=== PATIENT | male | born 1955 | race Caucasian/White ===

== ENCOUNTER 2019-12-15 06:31 | Outpatient (CLI) | payer MEDICARE, OTHER ==
[2019-12-15 10:47] LABS: #Basophils 0.1 thou/uL (0.0-0.2); #Eosinphils 0.3 thou/uL (0.0-0.7); #Lymphocytes 2.8 thou/uL (1.20-3.40); #Monocytes 1.1 thou/uL (0.11-0.59); %Basophils 1.1 % (0.0-1.0); %Eosinophils 2.6 % (0.0-10.0); %Lymphocytes 27.4 % (21.0-51.0); %Monocytes 10.9 % (0.0-10.0); Hemoglobin 14.6 g/dL (14.0-18.0); Mean Corpuscular HGB CONC 32.8 g/dL (32.0-36.0); Mean Corpuscular Hemoglobin 31.4 pg (27.0-31.0); Mean Corpuscular Volume 95.7 fL (78.0-98.0); Mean Platelet Volume 11.8 fL (7.4-10.4); Platelet Count 126 thou/uL (130-400); RBC Distribution Width 12.7 % (11.5-14.5); Red Blood Cell (RBC) Count 4.66 mill/uL (4.70-6.10); White Blood Cell (WBC) Count 10.3 thou/uL (4.8-10.8)
[2019-12-15 11:09] LABS: Anion Gap 13 mmol/L (10-20); BUN (Urea Nitrogen) 12 mg/dL (8.4-25.7); Calc. Creatinine Clearance 0 mL/min (70-130); Calcium 9.4 mg/dL (7.8-10.44); Carbon Dioxide 23 mmol/L (23-31); Chloride 105 mmol/L (98-107); Estimated GFR-MDRD 75; Glucose 102 mg/dL (80-115); Potassium 4.3 mmol/L (3.5-5.1); Sodium 137 mmol/L (136-145)
[2019-12-15 18:04] LABS: SARS-CoV-2 MS2 Positive; SARS-CoV-2 N Gene Negative; SARS-CoV-2 S Gene Negative; SARS-CoV-2 orf1ab Negative
--- NOTE | 2019-12-15 20:23 | EKG ---
Test Reason : Blood Pressure : / mmHG Vent. Rate : 085 BPM Atrial Rate : 085 BPM P-R Int : 166 ms QRS Dur : 142 ms QT Int : 410 ms P-R-T Axes : 050 063 -73 degrees QTc Int : 487 ms Normal sinus rhythm Left bundle branch block Abnormal ECG No previous ECGs available Confirmed by TERRY ESTRADA, DR. Adamson ([id number]) on 12/15/2019 8:22:26 PM Referred By: ABI Confirmed By:DR. Snow STEWART MD
== END 2019-12-15 06:32 | disposition home or self-care (01) ==
LOC: LABBT 06:31
PROVIDERS: ATTEND Surgery
DX: Z01.818 Encounter for other preprocedural examination (principal); Z11.59 Encounter for screening for other viral diseases; K42.9 Umbilical hernia without obstruction or gangrene; K43.9 Ventral hernia without obstruction or gangrene
CPT/HCPCS: 80048; 85025; 93005; U0003; 87635; 93010

== ENCOUNTER 2019-12-17 06:05 | Day surgery (SDC) | payer MEDICARE, OTHER ==
[2019-12-15 09:46] VITALS: BMI 25.7
[2019-12-17] MEDS ORDERED: Fentanyl 100 MCG/2 ML VIAL ONE ×2 (06:27→10:10)
[2019-12-17] MEDS ORDERED: Lidocaine 1% w/Epinephrine 1:100K 20 ML VIAL ONE (06:44)
[2019-12-17] MEDS ORDERED: Bupivacaine 0.25% HCL 30 ML VIAL ONE (06:44)
--- NOTE | 2019-12-17 09:30 | OP ---
DATE OF PROCEDURE: 12/17/2019 PREOPERATIVE DIAGNOSES: Incisional hernia and umbilical hernia. POSTOPERATIVE DIAGNOSES: Incisional hernia and umbilical hernia. PROCEDURES PERFORMED: 1. DaVinci laparoscopic incisional hernia repair with mesh, [address] 2. Umbilical hernia with mesh, open, Ventralex ST small. ANESTHESIA: General. ESTIMATED BLOOD LOSS: Minimal. COMPLICATIONS: None. FINDINGS: Hernia at the xiphoid from previous mediastinal tube. DESCRIPTION OF PROCEDURE: The patient was taken to the operating room and laid supine on the operating room table. After general anesthetic was obtained, his abdomen was shaved, prepped, and draped in a sterile fashion. A curved incision was made below the umbilicus and a left subcostal 5 mm Optiview trocars placed under direct vision without injury. An 11 mm balloon trocar placed at the umbilicus. Left and right abdominal 8 mm robotic trocars were placed. All ports were docked to the robot. The posterior peritoneum was taken down in the area of the falciform ligament, revealing this hernia just below the xiphoid. The fascia was fully exposed. The preperitoneal fat was dissected out of the hernia. The fascial defect was closed using a running 0 V-Loc suture. An [address] mesh was marked, cut, and placed into the abdominal cavity. The exposed mesh part was placed up against the posterior fascia. The nonadherent side was left down against abdominal viscera. This mesh was sewn to the posterior fascia using running 2-0 V-Loc. There was no injury to intraabdominal structures. All port sites were infiltrated using local anesthetic. All ports were removed under camera visualization. Pneumoperitoneum was let down. Umbilical stalk was then amputated at the umbilical incision and the edges of the fascial defect at the umbilicus were freshened. Ventralex ST small umbilical mesh was brought in sterile field, placed in the preperitoneal space and pulled up flat against the posterior abdominal wall. The tails were sewn via permanent braided suture to the edges of the fascia. The fascia was closed loosely over the mesh. The wound was irrigated. Local anesthetic was applied. The umbilical stalk was tacked back down using Vicryl. The skin was closed with a running 4-0 Monocryl and Dermabond. The other incisions were closed using 4-0 Monocryl and Dermabond. The patient was sent to Recovery in stable condition. All instrument counts, needle counts, and lap counts were correct. Job ID: [id number]
[2019-12-17] MEDS ORDERED: traMADol HCl 50 MG TAB ONE ×2 (11:14→12:10)
[2019-12-17] MEDS ORDERED: Ondansetron PF 4 MG/2 ML Vial ONE (12:41)
[2019-12-17] MEDS ORDERED: PROPOFOL 200 MG/20 ML VIAL ONE (12:41)
[2019-12-17] MEDS ORDERED: Rocuronium Bromide 10 MG/ML (10ML VIAL) ONE (12:41)
[2019-12-17] MEDS ORDERED: Dexamethasone 20 MG/5 ML VIAL ONE (12:41)
[2019-12-17] MEDS ORDERED: Ketorolac Tromethamine 30 MG/ML VIAL ONE (12:41)
[2019-12-17] MEDS ORDERED: Glycopyrrolate 0.2 MG/ML 5 ML SYRINGE ONE (12:41)
[2019-12-17] MEDS ORDERED: Lidocaine 1% PF 5 ML VIAL ONE (12:41)
[2019-12-17] MEDS ORDERED: PHENYLEPHRINE-NS 100 MCG/ML 10 ML SYRINGE ONE (12:41)
== END 2019-12-17 12:25 | disposition home or self-care (01) ==
LOC: SDC 06:05
PROVIDERS: ATTEND Surgery
PROC: 0WUF4JZ Supplement Abdominal Wall with Synthetic Substitute, Percutaneous Endoscopic Approach (ICD-10-PCS; principal; 2019-12-17)
PROC: 0WUF0JZ Supplement Abdominal Wall with Synthetic Substitute, Open Approach (ICD-10-PCS; 2019-12-17)
DX: K43.2 Incisional hernia without obstruction or gangrene (principal); K42.9 Umbilical hernia without obstruction or gangrene; F41.9 Anxiety disorder, unspecified; J45.909 Unspecified asthma, uncomplicated; E78.5 Hyperlipidemia, unspecified; I10 Essential (primary) hypertension; F17.210 Nicotine dependence, cigarettes, uncomplicated; Z79.82 Long term (current) use of aspirin; Z79.899 Other long term (current) drug therapy; Z88.2 Allergy status to sulfonamides; Z88.6 Allergy status to analgesic agent; Z88.8 Allergy status to other drugs, medicaments and biological substances; Z95.1 Presence of aortocoronary bypass graft
CPT/HCPCS: 49585; 49654; C1781; J0690; J1100; J1885; J2001; J2405; J2704; J3010; S0020

== ENCOUNTER 2020-08-10 09:46 | Outpatient (CLI) | payer MEDICARE, OTHER ==
--- NOTE | 2020-08-10 10:32 | RAD ---
Right RIBS 3 views HISTORY: Injury. FINDINGS: No displaced rib fracture or pneumothorax evident. Old, healed injuries to the right [age] h rib apparent. Postoperative changes mediastinum with aortic calcification. Rightward convex curvature of the lumbar spine. Metallic clips overlie the right axilla. IMPRESSION : No acute abnormalities are demonstrated.
--- NOTE | 2020-08-10 10:40 | RAD ---
EXAM: XR Lumbar Spine 2 Or 3 View PROVIDED CLINICAL HISTORY: Low back pain COMPARISON: None FINDINGS: 5 nonrib-bearing lumbar-type vertebral bodies are demonstrated. There is right convexity rotoscolios is of the lower thoracic and lumbar spine. There is trace anterolisthesis of L3 on L4 and slight retrolisthesis of L2 on L3. Lumbar alignment appears otherwise normal. Vertebral body heights appear preserved. Prominent disc space narrowing and endplate degenerative change at L3-4. Advanced multilevel lower lumbar facet arthritis. Conspicuous vascular calcifications and possible 3 cm abdomi nal aortic aneurysm. IMPRESSION: 1. Lumbar degenerative change and scoliosis as described. 2. Possible 3 cm abdominal aortic aneurysm. Recommend correlation with ultrasound. CODE T
== END 2020-08-10 09:47 | disposition home or self-care (01) ==
LOC: BICRAD 09:46
PROVIDERS: ATTEND Family Medicine
DX: M54.5 Low back pain (principal); M41.86 Other forms of scoliosis, lumbar region; M41.84 Other forms of scoliosis, thoracic region; M47.816 Spondylosis without myelopathy or radiculopathy, lumbar region
CPT/HCPCS: 72100

== ENCOUNTER 2020-08-24 08:31 | Outpatient (CLI) | payer MEDICARE, OTHER ==
--- NOTE | 2020-08-24 08:57 | ULT ---
EXAM: US Abdominal Aorta PROVIDED CLINICAL HISTORY: Screening for abdominal aortic aneurysm COMPARISON: None FINDINGS: The abdominal aorta appears nonaneurysmal, measuring approximately 2.6 cm in greatest transverse dime nsion. The common iliac arteries are nonaneurysmal. IMPRESSION: Ectasia of the abdominal aorta without davonte aneurysm.
== END 2020-08-24 08:32 | disposition home or self-care (01) ==
LOC: BICULT 08:31
PROVIDERS: ATTEND Family Medicine
DX: I71.4 Abdominal aortic aneurysm, without rupture (principal); I77.811 Abdominal aortic ectasia
CPT/HCPCS: 76775

== ENCOUNTER 2021-03-13 10:13 | Emergency (ER) | payer MEDICARE, OTHER ==
[2021-03-13 11:15] LABS: ALT (SGPT) 33 U/L (8-55); AST (SGOT) 22 U/L (5-34); Albumin 4.1 g/dL (3.4-4.8); Alkaline Phosphatase 57 U/L (40-110); Anion Gap 13 mmol/L (10-20); BUN (Urea Nitrogen) 21 mg/dL (8.4-25.7); Bilirubin, Total 0.3 mg/dL (0.2-1.2); Calc. Creatinine Clearance 0 mL/min (70-130); Calcium 9.6 mg/dL (7.8-10.44); Carbon Dioxide 23 mmol/L (23-31); Chloride 104 mmol/L (98-107); Globulin 3.3 g/dL (2.4-3.5); Glucose 102 mg/dL (80-115); Potassium 4.8 mmol/L (3.5-5.1); Protein, Total 7.4 g/dL (5.8-8.1); Sodium 135 mmol/L (136-145)
[2021-03-13 11:18] LABS: Hemoglobin 13.1 g/dL (14.0-18.0); Mean Corpuscular HGB CONC 33.1 g/dL (32.0-36.0); Mean Corpuscular Hemoglobin 31.2 pg (27.0-31.0); Mean Corpuscular Volume 94.3 fL (78.0-98.0); Red Blood Cell (RBC) Count 4.21 mill/uL (4.70-6.10); White Blood Cell (WBC) Count 6.4 thou/uL (4.8-10.8)
[2021-03-13 11:33] LABS: Band 1 % (5-11); Eosinophils 3 % (0-10); Large Platelets SLIGHT; Lymphocytes 34 % (21-51); MDiff Complete? YES; Mean Platelet Volume 12.5 fL (7.4-10.4); Monocytes 13 % (0-10); Neutrophil 44 % (42-75); Platelet Count 104 thou/uL (130-400); Platelet Morphology Comment Appears Decreased; Polychromasia SLIGHT = 2-3 cells (100X) (0-2/hpf); RBC Distribution Width 12.7 % (11.5-14.5); Reactive Lymphocytes 3 % (0-10)
[2021-03-13 12:26] LABS: SARS-CoV-2 NAA Rapid Test Not Detected (NotDetected)
[2021-03-13] MEDS ORDERED: Aspirin Chewable 81 MG TAB ONE (13:09)
== END 2021-03-13 14:06 | disposition home or self-care (01) ==
LOC: ERS 10:13
DX: N17.9 Acute kidney failure, unspecified (principal); R07.9 Chest pain, unspecified; R06.00 Dyspnea, unspecified; Z20.822 Contact with and (suspected) exposure to COVID-19; I10 Essential (primary) hypertension; E78.5 Hyperlipidemia, unspecified; J44.9 Chronic obstructive pulmonary disease, unspecified; F17.210 Nicotine dependence, cigarettes, uncomplicated; Z79.899 Other long term (current) drug therapy
CPT/HCPCS: 0240U; 71045; 80053; 83880; 84484; 85025; 93005; 36415

== ENCOUNTER 2025-04-19 14:02 | Inpatient (IN) | payer MEDICARE, OTHER ==
[2025-04-19] MEDS ORDERED: Ondansetron PF 4 MG/2 ML Vial IVP PRN (16:30)
[2025-04-19] MEDS ORDERED: Senokot S 8.6-50 MG TAB PO PRN (16:30)
[2025-04-19] MEDS ORDERED: Melatonin 3 MG TAB PO PRN (16:30)
[2025-04-19] MEDS: Furosemide 20 MG (2 mL) VIAL SLOW IVP SCH (17:15)
[2025-04-19 18:25] VITALS: BMI 25.0
[2025-04-19] MEDS: Apixaban 5 MG TAB PO SCH (20:14)
[2025-04-19] MEDS ORDERED: Benzocaine/Menthol 1 LOZ LOZ PO PRN (20:59)
[2025-04-19] MEDS: Metoprolol Succinate XL 25 MG ER.TAB PO SCH (21:28)
[2025-04-19] MEDS: Amiodarone 200 MG TAB PO SCH (21:28)
[2025-04-20] MEDS: Ipratropium Bromide 2.5 ml Neb NEB SCH (00:14)
[2025-04-20 05:24] LABS: #Basophils 0.15 10x3/uL (0.0-0.2); #Eosinophils 0.30 10x3/uL (0.0-0.7); #Monocytes 1.04 10x3/uL (0.11-0.59); #Neutrophils 6.05 10x3/uL (1.40-6.50); %Basophils 1.5 % (0.0-1.0); %Eosinophils 3.1 % (0.0-10.0); %Lymphocytes 22.1 % (21.0-51.0); %Monocytes 10.7 % (0.0-10.0); %Neutrophils 62.2 % (42.0-75.0); Hematocrit 40.9 % (42.0-52.0); Hemoglobin 13.0 g/dL (14.0-18.0); Mean Corpuscular Hemoglobin 29.5 pg (27.0-31.0); Mean Corpuscular Volume 93.0 fL (78.0-98.0); Platelet Count 155 10x3/uL (130-400); Red Blood Cell (RBC) Count 4.40 mill/uL (4.70-6.10); White Blood Cell (WBC) Count 9.73 10x3/uL (4.8-10.8)
[2025-04-20 05:37] LABS: Anion Gap 14 mmol/L (10-20); BUN (Urea Nitrogen) 17 mg/dL (8.4-25.7); Calc. Creatinine Clearance 61 mL/min (70-130); Calcium 9.2 mg/dL (7.8-10.44); Carbon Dioxide 22 mmol/L (23-31); Chloride 104 mmol/L (98-107); Glucose 110 mg/dL (83-110); Potassium 4.6 mmol/L (3.5-5.1); Sodium 135 mmol/L (136-145)
[2025-04-20] MEDS: Amiodarone 200 MG TAB PO SCH (08:32)
[2025-04-20] MEDS: Furosemide 20 MG (2 mL) VIAL SLOW IVP SCH (08:33)
[2025-04-20] MEDS: Apixaban 5 MG TAB PO SCH (08:33)
[2025-04-21 05:17] LABS: #Basophils 0.11 10x3/uL (0.0-0.2); #Eosinophils 0.30 10x3/uL (0.0-0.7); #Monocytes 0.99 10x3/uL (0.11-0.59); #Neutrophils 5.56 10x3/uL (1.40-6.50); %Basophils 1.3 % (0.0-1.0); %Eosinophils 3.4 % (0.0-10.0); %Lymphocytes 19.6 % (21.0-51.0); %Monocytes 11.4 % (0.0-10.0); %Neutrophils 63.7 % (42.0-75.0); Hematocrit 41.7 % (42.0-52.0); Hemoglobin 13.5 g/dL (14.0-18.0); Mean Corpuscular Hemoglobin 29.6 pg (27.0-31.0); Mean Corpuscular Volume 91.4 fL (78.0-98.0); Platelet Count 154 10x3/uL (130-400); Red Blood Cell (RBC) Count 4.56 mill/uL (4.70-6.10); White Blood Cell (WBC) Count 8.72 10x3/uL (4.8-10.8)
[2025-04-21 05:46] LABS: Anion Gap 16 mmol/L (10-20); BUN (Urea Nitrogen) 26 mg/dL (8.4-25.7); Calc. Creatinine Clearance 44 mL/min (70-130); Calcium 9.6 mg/dL (7.8-10.44); Carbon Dioxide 21 mmol/L (23-31); Chloride 104 mmol/L (98-107); Glucose 113 mg/dL (83-110); Potassium 4.1 mmol/L (3.5-5.1); Sodium 137 mmol/L (136-145)
[2025-04-21] MEDS: Amiodarone 200 MG TAB PO SCH ×2 (10:52→16:08)
[2025-04-21] MEDS: Furosemide 20 MG (2 mL) VIAL SLOW IVP SCH (10:52)
[2025-04-22 05:10] LABS: #Basophils 0.12 10x3/uL (0.0-0.2); #Eosinophils 0.20 10x3/uL (0.0-0.7); #Monocytes 0.81 10x3/uL (0.11-0.59); #Neutrophils 6.25 10x3/uL (1.40-6.50); %Basophils 1.3 % (0.0-1.0); %Eosinophils 2.2 % (0.0-10.0); %Lymphocytes 19.3 % (21.0-51.0); %Monocytes 8.8 % (0.0-10.0); %Neutrophils 68.0 % (42.0-75.0); Hematocrit 40.9 % (42.0-52.0); Hemoglobin 12.9 g/dL (14.0-18.0); Mean Corpuscular Hemoglobin 29.1 pg (27.0-31.0); Mean Corpuscular Volume 92.1 fL (78.0-98.0); Platelet Count 160 10x3/uL (130-400); Red Blood Cell (RBC) Count 4.44 mill/uL (4.70-6.10); White Blood Cell (WBC) Count 9.20 10x3/uL (4.8-10.8)
[2025-04-22 05:29] LABS: Anion Gap 15 mmol/L (10-20); BUN (Urea Nitrogen) 24 mg/dL (8.4-25.7); Calc. Creatinine Clearance 44 mL/min (70-130); Calcium 9.0 mg/dL (7.8-10.44); Carbon Dioxide 20 mmol/L (23-31); Chloride 104 mmol/L (98-107); Glucose 213 mg/dL (83-110); Potassium 4.1 mmol/L (3.5-5.1); Sodium 135 mmol/L (136-145)
[2025-04-22 08:08] VITALS: BP 116/61
[2025-04-22 08:09] VITALS: TEMP 97.9
[2025-04-22] MEDS ORDERED: Amiodarone 200 MG TAB PO SCH (21:00)
[2025-04-23] MEDS ORDERED: Aspirin 81 mg Enteric Coated Tablet PO SCH (09:00)
== END 2025-04-22 11:20 | disposition home or self-care (01) | DRG 280 ==
LOC: INTOOBSV 16:00 → OBS 16:00 → OBSVTOIN 04-20 10:04
PROVIDERS: ADMIT Family Medicine; ATTEND Hospitalist
DX: I48.0 Paroxysmal atrial fibrillation (principal); I50.33 Acute on chronic diastolic (congestive) heart failure; I21.A1 Myocardial infarction type 2; N17.9 Acute kidney failure, unspecified; J44.9 Chronic obstructive pulmonary disease, unspecified; E78.5 Hyperlipidemia, unspecified; I25.10 Atherosclerotic heart disease of native coronary artery without angina pectoris; Z95.5 Presence of coronary angioplasty implant and graft; F17.210 Nicotine dependence, cigarettes, uncomplicated; Z88.2 Allergy status to sulfonamides; Z88.1 Allergy status to other antibiotic agents; Z79.82 Long term (current) use of aspirin; Z79.01 Long term (current) use of anticoagulants; Z79.899 Other long term (current) drug therapy; I44.7 Left bundle-branch block, unspecified; Z88.8 Allergy status to other drugs, medicaments and biological substances; I11.0 Hypertensive heart disease with heart failure; J45.909 Unspecified asthma, uncomplicated; Z96.651 Presence of right artificial knee joint; Z86.73 Personal history of transient ischemic attack (TIA), and cerebral infarction without residual deficits; F41.9 Anxiety disorder, unspecified; Z88.6 Allergy status to analgesic agent; Z91.018 Allergy to other foods; Z91.011 Allergy to milk products; I73.9 Peripheral vascular disease, unspecified; Z95.1 Presence of aortocoronary bypass graft; Z71.6 Tobacco abuse counseling; I08.3 Combined rheumatic disorders of mitral, aortic and tricuspid valves
CPT/HCPCS: 36415; 80048; 85025; 93005; 93010; 93306; 94640; 96374; 96376; G0378; J1940; J7030; J7644

== ENCOUNTER 2025-07-12 15:17 | Outpatient (CLI) | payer MEDICARE, OTHER | END 2025-07-12 15:18 | disposition home or self-care (01) | LOC: SCSULT 15:17 | PROVIDERS: ATTEND Family Medicine | DX: N50.89 Other specified disorders of the male genital organs (principal); N45.3 Epididymo-orchitis; N43.3 Hydrocele, unspecified | CPT/HCPCS: 76870; 93976 ==

== ENCOUNTER 2025-07-12 15:21 | Outpatient (CLI) | payer MEDICARE, OTHER | END 2025-07-12 15:22 | disposition home or self-care (01) | LOC: SCSRAD 15:21 | PROVIDERS: ATTEND Family Medicine | DX: J18.8 Other pneumonia, unspecified organism (principal) | CPT/HCPCS: 36415; 71046; 76870; 80053; 80061; 85025; 87086; 93976 ==

== ENCOUNTER 2025-07-12 19:31 | Inpatient (IN) | payer MEDICARE, OTHER ==
[2025-07-12 21:49] LABS: #Basophils 0.13 10x3/uL (0.0-0.2); #Eosinophils 0.12 10x3/uL (0.0-0.7); #Monocytes 1.47 10x3/uL (0.11-0.59); #Neutrophils 12.02 10x3/uL (1.40-6.50); %Basophils 0.8 % (0.0-1.0); %Eosinophils 0.8 % (0.0-10.0); %Lymphocytes 12.9 % (21.0-51.0); %Monocytes 9.2 % (0.0-10.0); %Neutrophils 75.0 % (42.0-75.0); Hematocrit 42.1 % (42.0-52.0); Hemoglobin 13.9 g/dL (14.0-18.0); Mean Corpuscular Hemoglobin 29.6 pg (27.0-31.0); Mean Corpuscular Volume 89.8 fL (78.0-98.0); Platelet Count 190 10x3/uL (130-400); Red Blood Cell (RBC) Count 4.69 mill/uL (4.70-6.10); White Blood Cell (WBC) Count 16.00 10x3/uL (4.8-10.8)
[2025-07-12 21:53] LABS: ALT (SGPT) 19 U/L (Less than 45); AST (SGOT) 27 U/L (11-34); Albumin 3.4 g/dL (3.1-4.5); Alkaline Phosphatase 82 U/L (40-110); Anion Gap 16 mmol/L (10-20); BUN (Urea Nitrogen) 22 mg/dL (8.4-25.7); Bilirubin, Total 0.4 mg/dL (0.3-1.2); Calc. Creatinine Clearance 0 mL/min (70-130); Calcium 9.6 mg/dL (7.8-10.44); Carbon Dioxide 24 mmol/L (23-31); Chloride 105 mmol/L (98-107); Globulin 4.1 g/dL (2.4-3.5); Glucose 117 mg/dL (83-110); Potassium 3.8 mmol/L (3.5-5.1); Sodium 141 mmol/L (136-145)
[2025-07-13] MEDS ORDERED: LevoFLOXacin 750 mg/D5W 150 ml Premix Bag ONE (00:24)
[2025-07-13 05:56] VITALS: BMI 23.8
[2025-07-13 06:43] LABS: #Basophils 0.10 10x3/uL (0.0-0.2); #Eosinophils 0.10 10x3/uL (0.0-0.7); #Monocytes 1.17 10x3/uL (0.11-0.59); #Neutrophils 11.25 10x3/uL (1.40-6.50); %Basophils 0.7 % (0.0-1.0); %Eosinophils 0.7 % (0.0-10.0); %Lymphocytes 10.1 % (21.0-51.0); %Monocytes 8.3 % (0.0-10.0); %Neutrophils 79.5 % (42.0-75.0); Hematocrit 38.7 % (42.0-52.0); Hemoglobin 12.4 g/dL (14.0-18.0); Mean Corpuscular Hemoglobin 29.6 pg (27.0-31.0); Mean Corpuscular Volume 92.4 fL (78.0-98.0); Platelet Count 178 10x3/uL (130-400); Red Blood Cell (RBC) Count 4.19 mill/uL (4.70-6.10); White Blood Cell (WBC) Count 14.15 10x3/uL (4.8-10.8)
[2025-07-13 06:59] LABS: Anion Gap 13 mmol/L (10-20); BUN (Urea Nitrogen) 17 mg/dL (8.4-25.7); Calc. Creatinine Clearance 57 mL/min (70-130); Calcium 9.3 mg/dL (7.8-10.44); Carbon Dioxide 23 mmol/L (23-31); Chloride 107 mmol/L (98-107); Glucose 109 mg/dL (83-110); Potassium 4.3 mmol/L (3.5-5.1); Sodium 139 mmol/L (136-145)
[2025-07-13 07:32] LABS: Glucose, Urine (Dipstick) >=1000 mg/dL (Negative); Leukocyte Small (Negative); Protein, Urine (Dipstick) Trace mg/dL (Neg-Trace); Specific Gravity, Urine 1.025 (1.005-1.030)
[2025-07-13 07:47] LABS: Bacteria/HPF 1+ HPF (None Seen); CAUTI Indications for Culture Acute Hematuria; WBC/HPF Greater than 50 HPF (0-3)
[2025-07-13 07:48] LABS: Urine Culture Reflex Yes Yes
[2025-07-13] MEDS ORDERED: Aspirin Chewable 81 MG TAB ONE (08:25)
[2025-07-13] MEDS ORDERED: Aspirin 81 mg Enteric Coated Tablet ONE (08:26)
[2025-07-13] MEDS: Aspirin 81 mg Enteric Coated Tablet PO SCH (08:30)
[2025-07-13] MEDS: cefTRIAXone\\ROCEPHIN 2 GM in Sodium Chloride 0.9% 100 ML IVPB SCH (18:28)
[2025-07-13] MEDS ORDERED: LevoFLOXacin 750 mg/D5W 750 MG in Premix 1 BAG IVPB SCH (22:00)
[2025-07-13] MEDS: VANCOMYCIN 2 GRAM/400 ML BAG 2 GM in Premix 1 BAG IVPB SCH (22:36)
[2025-07-14 05:33] LABS: Vancomycin, Random 21.5 ug/mL (See Comment)
[2025-07-14] MEDS ORDERED: Vancomycin 1.5 GM / NS 500 ML VIAL-2-BAG IVPB SCH (23:00)
[2025-07-15 06:57] LABS: #Basophils 0.10 10x3/uL (0.0-0.2); #Eosinophils 0.18 10x3/uL (0.0-0.7); #Monocytes 1.07 10x3/uL (0.11-0.59); #Neutrophils 5.63 10x3/uL (1.40-6.50); %Basophils 1.2 % (0.0-1.0); %Eosinophils 2.2 % (0.0-10.0); %Lymphocytes 14.6 % (21.0-51.0); %Monocytes 12.9 % (0.0-10.0); %Neutrophils 68.0 % (42.0-75.0); Hematocrit 36.5 % (42.0-52.0); Hemoglobin 11.3 g/dL (14.0-18.0); Mean Corpuscular Hemoglobin 28.8 pg (27.0-31.0); Mean Corpuscular Volume 93.1 fL (78.0-98.0); Platelet Count 190 10x3/uL (130-400); Red Blood Cell (RBC) Count 3.92 mill/uL (4.70-6.10); White Blood Cell (WBC) Count 8.28 10x3/uL (4.8-10.8)
[2025-07-15 07:00] LABS: Anion Gap 7 mmol/L (10-20); BUN (Urea Nitrogen) 14 mg/dL (8.4-25.7); Calc. Creatinine Clearance 64 mL/min (70-130); Calcium 8.8 mg/dL (7.8-10.44); Carbon Dioxide 21 mmol/L (23-31); Chloride 109 mmol/L (98-107); Glucose 163 mg/dL (83-110); Potassium 4.1 mmol/L (3.5-5.1); Sodium 133 mmol/L (136-145)
[2025-07-15 09:19] VITALS: BP 119/71; TEMP 97.5
[2025-07-15] MEDS: Apixaban 5 MG TAB PO SCH (09:46)
[2025-07-15] MEDS ORDERED: Mometasone 200 MCG/Formoterol 5 MCG 120 PUFF INHALER INH SCH (18:30)
== END 2025-07-15 11:57 | disposition home or self-care (01) | DRG 872 ==
LOC: ERS 19:31 → ERHOLD 23:54 → T4-A 07-13 12:11
PROVIDERS: ADMIT Internal Medicine; ATTEND Hospitalist
DX: A41.51 Sepsis due to Escherichia coli [E. coli] (principal); N39.0 Urinary tract infection, site not specified; I48.92 Unspecified atrial flutter; N45.3 Epididymo-orchitis; I48.91 Unspecified atrial fibrillation; J44.9 Chronic obstructive pulmonary disease, unspecified; I12.9 Hypertensive chronic kidney disease with stage 1 through stage 4 chronic kidney disease, or unspecified chronic kidney disease; I25.10 Atherosclerotic heart disease of native coronary artery without angina pectoris; E78.5 Hyperlipidemia, unspecified; F17.200 Nicotine dependence, unspecified, uncomplicated; N18.30 Chronic kidney disease, stage 3 unspecified; I73.9 Peripheral vascular disease, unspecified; Z88.1 Allergy status to other antibiotic agents; Z88.8 Allergy status to other drugs, medicaments and biological substances; Z91.018 Allergy to other foods; Z79.899 Other long term (current) drug therapy; Z79.01 Long term (current) use of anticoagulants; Z79.82 Long term (current) use of aspirin; Z71.6 Tobacco abuse counseling; Z98.890 Other specified postprocedural states; Z95.1 Presence of aortocoronary bypass graft; Z95.818 Presence of other cardiac implants and grafts; Z96.659 Presence of unspecified artificial knee joint; N43.3 Hydrocele, unspecified; B96.20 Unspecified Escherichia coli [E. coli] as the cause of diseases classified elsewhere
CPT/HCPCS: 36415; 71046; 76870; 80048; 80053; 80061; 80202; 81001; 83605; 84484; 85025; 87040; 87077; 87086; 87149; 87186; 93005; 93976; 94640; 96365; 96366; 96375; J0696; J1956; J3375; J7030; J7626